=== PATIENT | female | born 1950 | race Caucasian/White ===

== ENCOUNTER 2016-11-26 10:53 | Emergency (ER) | payer OTHER ==
[~2016-11-26] VITALS: Ht 160 cm; Wt 61.2 kg
[~2016-11-26 10:53] MED LIST: AZIT250T74
[2016-11-26 11:01] VITALS: BP 135/88; PULSE 86; RESP 18; TEMP 98.2; O2SAT 95
[2016-11-26] MEDS ORDERED: AMBI10TA PO (11:15)
[2016-11-26] MEDS ORDERED: HYDR-3516 PO (11:15)
[2016-11-26] MEDS ORDERED: KETOROLAC TROMETHAMINE 60 MG/2 ML (IM) VIAL IM ONE (11:45)
--- NOTE | 2016-11-26 11:45 | PD ---
HPI Chief Complaint: Musculoskeletal Complaint Time Seen by Provider: 11:39 Travel History International Travel<30 days: No Contact w/Intl Traveler<30days: No Traveled to known affect area: No History of Present Illness HPI 66-year-old female presents to the emergency room for evaluation of left hip pain for the past 2 months. Patient states pain has been intermittent since onset. She denies trauma or injury. She went to her orthopedic physician who took an x-ray and stated that her bones were healthy and that was likely bursitis. She then had a steroid injection under CT one week ago today. Patient states that since the injection her pain has worsened. It is now radiating down her left lower extremity where it didn't do that before. Patient denies the lower extremity paresthesias. Denies weakness. She called her primary care physician who wrote #60 hydrocodone and ordered an outpatient MRI. Her MRI is scheduled for next week. She took one hydrocodone and states it made her feel loopy so she would not like to take them anymore. Pain is keeping her up at night and affecting her ability to work out. She denies increasing back pain. PFSH Past Medical History Medical History: Denies Significant Hx Tetanus Vaccination: < 5 Years Influenza Vaccination: Yes ?: Not Past Surgical History Section: Yes Social History Alcohol Use: Yes Tobacco Use: No Substance Use: No Allergies-Medications (Allergen,Severity, Reaction): Coded Allergies: Penicillin (Verified Allergy, Mild, 11/26/16) Bactrim (Verified Allergy, Unknown, 11/26/16) Reported Meds & Prescriptions Reported Meds & Active Scripts Active Ibuprofen 600 Mg Tab 600 Mg PO Q8HR PRN Reported Hydrocodone-Acetaminophen 5-325 mg Tab 1 Tab PO Q6H PRN Ambien (Zolpidem Tartrate) 10 Mg Tab 10 Mg PO HS PRN Review of Systems Except as stated in HPI: all other systems reviewed are Neg Physical Exam Narrative GENERAL: Well-nourished, well-developed female in no acute distress. Afebrile. Ambulatory. SKIN: Focused skin assessment warm/dry. HEAD: Normocephalic. EYES: No scleral icterus. No injection or drainage. NECK: Supple, trachea midline. No JVD or lymphadenopathy. CARDIOVASCULAR: Regular rate and rhythm without murmurs, gallops, or rubs. RESPIRATORY: Breath sounds equal bilaterally. No accessory muscle use. MUSCULOSKELETAL: No cyanosis, or edema. 2+ dorsalis pedis pulse in the left. Mild tenderness to palpation of the left buttocks. Mild pain with left hip flexion. No rotation or shortening. Strength 5/5 and equal in lower extremities. BACK: Nontender without obvious deformity. No CVA tenderness. Data Data Last Documented VS Vital Signs Date Time Temp Pulse Resp B/P Pulse Ox O2 Delivery O2 Flow Rate FiO2 11/26/16 11:01 98.2 86 18 135/88 95 Orders Ketorolac Inj (Toradol Inj) (11/26/16 11:45) [facility] [place] Medical Decision Making Medical Screen Exam Complete: Yes Emergency Medical Condition: Yes Medical Record Reviewed: Yes Differential Diagnosis Bursitis versus sciatica versus tendinitis versus tendinopathy Narrative Course 66-year-old female presents to the emergency room for evaluation of left hip pain for the past few months that worsened one week ago after she had an injection of steroids to the area. Patient denies any trauma or injury. Left lower extremity is neurovascularly intact with 2+ dorsalis pedis pulse and 5/5 strength equal. She has had outpatient x-ray, CT, and pain management done by orthopedist, interventional radiologist, and her primary care physician but states the pain seems to be worsening. She has a scheduled MRI in 6 days. Patient presents for pain control. She was prescribed Lortab but states she does not like the way they make her feel and is requesting something else. She was given Toradol in the emergency room. She was offered steroid dose pack but declined for fear of side effects. Patient was told to follow up with her primary care physician for outpatient MRI to find a cause of pain. She was told to return for worsening symptoms. She understands and agrees to plan. Diagnosis Primary Impression: Hip bursitis, left Qualified Code: M70.72 - Bursitis of other bursa of left hip Referrals: Primary Care Physician Patient Instructions: General Instructions, Hip Bursitis (ED) Additional Instructions: Rest and drink plenty of fluids. Take ibuprofen with food as directed, as needed for pain. Apply ice to the affected area for 20 minutes at a time, as needed for pain and swelling. Follow-up with a primary care physician. Return to the emergency room for worsening symptoms. Scripts Ibuprofen 600 Mg Bul392 Mg PO Q8HR PRN (PAIN) #21 TAB Ref 0 Prov:Lizeth,Shravanti R. MD 11/26/16 Disposition: 01 DISCHARGE HOME Condition: Stable Felipa Michel November 26, 2016 11:45
[2016-11-26] MEDS ORDERED: IBUP-232 PO (11:46)
[2016-12-02] MEDS ORDERED: HYDR-3516 PO (09:02)
[2016-12-02] MEDS ORDERED: ASCO500C PO (09:16)
[2016-12-02] MEDS ORDERED: FISHCAP4 PO (09:16)
[2016-12-02] MEDS ORDERED: PANT20 PO (09:16)
[2016-12-02] MEDS ORDERED: LACTCAP8 PO (09:16)
[2016-12-02] MEDS ORDERED: MELO-1 PO (09:16)
[2016-12-30] MEDS ORDERED: OXYC1TAB63 PO (15:28)
== END 2016-11-26 11:54 | disposition home or self-care (01) ==
LOC: PHEFT 10:53
DX: M70.72 Other bursitis of hip, left hip (principal)
CPT/HCPCS: 96372; 99283; J1885

== ENCOUNTER 2016-12-04 09:07 | Inpatient (IN) | payer OTHER ==
[~2016-12-04] VITALS: Ht 160 cm; Wt 60.3 kg
[~2016-12-04 09:07] MED LIST changes: +AMBI10TA PO; -AZIT250T74; +FISHCAP4 PO; +IBUP-232 PO; +LACTCAP8 PO; +PANT20 PO
[2016-12-08] MEDS ORDERED: VITA250T3 PO (08:57)
[2016-12-08] MEDS ORDERED: PERC5TAB12 PO (08:57)
[2016-12-08] MEDS ORDERED: MOBI15TA PO (08:57)
[2016-12-08] MEDS ORDERED: OS-CTAB3 PO (08:57)
[2016-12-17] MEDS ORDERED: INSULIN HUMAN REGULAR 1,000 UNITS/10 ML VIAL SQ PRN (07:00)
[2016-12-17] MEDS ORDERED: METOPROLOL TARTRATE 25 MG TAB PO PRN (07:00)
[2016-12-17] MEDS ORDERED: CHLORHEXIDINE GLUCONATE 2 % 1 PACK (2 CLOTHS) TOPICAL PRN (07:00)
[2016-12-17] MEDS ORDERED: LACTATED RINGER'S 1000 ML INJ 1,000 ML IV SCH ×2 (07:00→14:00)
[2016-12-17] MEDS ORDERED: POVIDONE IODINE 5% (ANTISEPSIS KIT) 4 APPLICATIONS EACH NARE PRN (07:00)
[2016-12-17] MEDS ORDERED: CLINDAMYCIN 600 MG/NS 100 ML IV PRN ×2 (07:00)
[2016-12-17] MEDS ORDERED: SODIUM CHLORID 0.9% 500 ML IV PRN (07:00)
[2016-12-17] MEDS ORDERED: LACTATED RINGER'S 1000 ML IV PRN (07:00)
[2016-12-17 07:13] VITALS: BP 148/80; PULSE 77; RESP 18; TEMP 98.2; O2SAT 100
[2016-12-17] MEDS ORDERED: SODIUM CHLORIDE 0.9% INJ 100 ML ONE (07:22)
[2016-12-17] MEDS ORDERED: THROMBIN (TOPICAL) 5,000 UNIT VIAL ONE (07:59)
[2016-12-17] MEDS ORDERED: GENTAMICIN SULFATE 80 MG/2 ML VIAL ONE (08:00)
[2016-12-17] MEDS ORDERED: LIDOCAINE 2%/EPINEPHrine 1:100,000 30ML MDV ONE (08:00)
[2016-12-17] MEDS ORDERED: GELFOAM SIZE 100 ONE (08:00)
[2016-12-17] MEDS ORDERED: APREPITANT 40 MG CAP ONE (08:10)
[2016-12-17] MEDS ORDERED: FAMOTIDINE 20 MG/2 ML VIAL ONE (08:10)
[2016-12-17] MEDS ORDERED: BUPIVACAINE LIPOSOME PF 1.3% 20 ML VIAL INFIL ONE (11:34)
[2016-12-17] MEDS ORDERED: ONDANSETRON HCL 4 MG/2 ML VIAL IV PUSH ONE (12:00)
[2016-12-17] MEDS ORDERED: PROPOFOL 200 MG/20 ML AMP IV ONE (12:00)
[2016-12-17] MEDS ORDERED: PHENYLEPH/NS 1000 MCG/10 ML SYR IV ONE (12:00)
[2016-12-17] MEDS ORDERED: NEOSTIGMINE 3 MG/3 ML SYR IV ONE (12:00)
[2016-12-17] MEDS ORDERED: LACTATED RINGER'S 1000 ML INJ 1,000 ML IV ONE (12:00)
[2016-12-17] MEDS ORDERED: ePHEDrine/NS 25 MG/5 ML SYR IV ONE (12:00)
[2016-12-17] MEDS ORDERED: ONDANSETRON HCL 4 MG/2 ML VIAL ONE (12:06)
[2016-12-17] MEDS ORDERED: fentaNYL CITRATE 250 MCG/5 ML AMP ONE (12:11)
[2016-12-17] MEDS ORDERED: MIDAZOLAM HCL 2 MG/2 ML VIAL ONE (12:11)
[2016-12-17] MEDS ORDERED: *morphine SULFATE 8 MG/ML PERIprocedure ONLY ONE (12:21)
[2016-12-17] MEDS ORDERED: DILA2TAB2 PO (12:51)
[2016-12-17] MEDS ORDERED: PERC10TA27 PO (12:51)
[2016-12-17] MEDS ORDERED: DO NOT ADM ANY ANTICOAGULANT DRUGS PRN (13:00)
[2016-12-17] MEDS ORDERED: oxyCODONE/ACETAMINOPHEN 5 MG/325 MG TAB PO PRN (13:15)
[2016-12-17] MEDS ORDERED: NALOXONE HCL 0.4 MG/ML AMP IV PRN (13:15)
[2016-12-17] MEDS ORDERED: HYDROmorphone HCL PF 1 MG/ML VIAL IV PRN (13:15)
[2016-12-17] MEDS ORDERED: SODIUM CHLORIDE 0.9% FLUSH 10 ML FLUSH IV FLUSH PRN (13:15)
[2016-12-17] MEDS ORDERED: oxyCODONE/ACETAMINOPHEN 10 MG/325 MG TAB PO PRN (13:15)
--- NOTE | 2016-12-17 13:15 | PD.OP ---
Operative Report Date of Surgery: Dec 17, 2016 Preoperative Diagnosis: (1) Synovial cyst of lumbar facet joint (2) Lumbar radiculopathy Postoperative Diagnosis: (1) Synovial cyst of lumbar facet joint (2) Lumbar radiculopathy Procedure: Left L5-S1 decompressive semi-laminectomy, medial facetectomy Resection left L5-S1 synovial cyst versus ganglion cyst Anesthesia: Gen. Surgeon: John Lutz Industrial Relations Representative(s): Malgorzata Khan Operation and Findings: Findings: Synovial versus ganglion cyst at the dorsal lateral left L5-S1 level thecal sac with adjacent facet hypertrophy and arthropathy and hypertrophied ligamentum flavum, all impinging on the exiting left S1 nerve root. Procedure in detail: The patient was brought into the operating room and general endotracheal anesthesia induced without difficulty. BELTRAN hose and sequential compression devices were placed. Lines were established by anesthesia. The patient was positioned on the concentric Juan David table with the side bolsters and all extremities appropriately padded. Appropriate time-out procedure was performed with all personnel present and in agreement. 1% Xylocaine with epinephrine was used for local infiltration over the incision site which was made just to the left of midline at the L5-S1 level. The incision was carried sharply down to the lumbodorsal fascia which was incised adjacent to the spinous processes. Killian elevator was used for subperiosteal elevation of paraspinous musculature and fascia away from the lamina and spinous process. The deep self-retaining retractor was placed. The left L5-S1 level was verified with intraoperative C-arm. Microscope was moved into place and used for the remainder of the procedure including the closure. At the left L5-S1 level, the TPS drill with a 5 mm bone bur was used to remove the inferior two thirds of the more cephalad lamina and the superior aspect of the more caudal lamina along with a moderate amount of the bilateral medial facet sufficient to gain access to the lateral recess and exiting left S1 nerve root without significant thecal sac retraction, taking care not to disrupt the integrity of the facet or pars intra-articularis. The hypertrophied ligamentum flavum was elevated away from the thecal sac with the thin ligament dissector and resected with the 15 blade knife and the Kerrison rongeur out to the level of the deep lateral recess There was significant hypertrophy of the facet. The patient's anatomy was such that there was a rather small interlaminar space at the left L5-S1 level. There was also significant overlap of the facet over the left S1 nerve root. There was also at least moderate ligament hypertrophy. There appeared to be a synovial cyst incorporated into the medial facet and adjacent ligamentum flavum at the left L5-S1 level. The thecal sac above and below the area of the apparent synovial cyst was visualized and decompressed. Then working both cranial and caudal to the area of the apparent synovial cyst, the cyst capsule was carefully lifted away from the adjacent lateral thecal sac. The left S1 nerve root was delineated as it coursed medial to the left S1 pedicle and was followed up into the thecal sac. The abnormal cystic area was well dorsal to the exiting left S1 nerve root. Upon further dissection, there appeared to be intrusion of the abnormal lesion into the thecal sac and intradural space itself. There was calcified and caseous-appearing material within the cyst which was lifted away from the thecal sac. However there were also possibly some nerve fibers within the sac, suggestive of a ganglion cyst. The cyst wall and calcific and caseous contents along with what appeared to be possibly some nerve fibers were resected down to the level of the lateral thecal sac wall with the microscissors and sent for permanent section pathology. There was no significant bleeding encountered. No spinal fluid leakage was encountered. The exiting left S1 nerve root was followed to the level of the medial pedicle to ensure that it was well decompressed. The nerve roots appeared well decompressed at the end of the procedure. No spinal fluid leakage was encountered. The disc and annulus at each level was visualized to make sure that there was no significant disc displacement or herniation. Bleeding was carefully controlled with the bipolar forceps. The closure was performed with 0 Vicryl interrupted for the deep and superficial fascia, with 3-0 Vicryl interrupted subcutaneous closure, and 4-0 Vicryl running subcuticular closure. A dressing of sterile Mastisol, Steri- Strips, and Primapore was placed. The patient was taken to recovery room in stable condition. All counts were correct at the end of the case. Estimated blood loss was 100 cc. No specimen was sent to pathology John Lutz MD Dec 17, 2016 13:15
[2016-12-17] MEDS ORDERED: SODIUM CHLORIDE 0.9% FLUSH 10 ML FLUSH IV FLUSH SCH (14:00)
[2016-12-17 14:38] VITALS: BP 101/73; PULSE 93; RESP 16; TEMP 97.2; O2SAT 98
--- NOTE | 2016-12-17 15:15 | RADRPT ---
EXAM DATE/TIME: 12/17/2016 09:26 [facility] COMPARISON: No previous studies available for comparison. INDICATIONS : Synovial cyst removal., laminectomy. MEDICAL HISTORY : None. SURGICAL HISTORY : None. ENCOUNTER: Initial ACUITY: 1 day PAIN SCORE: LOCATION: Lumbar spine FINDINGS: A single magnified spot view is a lateral projection of the lower lumbar spine at the lumbosacral addi ction. Dorsal skin retractors and a metallic probe within the dorsal soft tissues noted. The probe pr ojects towards L5-S1 disc space level. CONCLUSION: Limited image as detailed above. Jeet Fall Jr., MD on December 17, 2016 at 15:12 Board Certified Radiologist. This report was verified electronically.
[2016-12-30] MEDS ORDERED: OXYC1TAB63 PO (15:28)
== END 2016-12-17 14:47 | disposition home or self-care (01) | DRG 520 ==
LOC: HSDI 12-17 06:31 → EDSTATUS 12-17 08:30
PROVIDERS: ADMIT Neurological Surgery; ATTEND Neurological Surgery
PROC: 01NB0ZZ Release Lumbar Nerve, Open Approach (ICD-10-PCS; 2016-12-17)
PROC: 00BY0ZZ Excision of Lumbar Spinal Cord, Open Approach (ICD-10-PCS; principal; 2016-12-17 08:34)
DX: M71.38 Other bursal cyst, other site (principal); K21.9 Gastro-esophageal reflux disease without esophagitis; M54.16 Radiculopathy, lumbar region; M67.48 Ganglion, other site
CPT/HCPCS: 72020; 76000; 88304; C9290; J1580; J2250; J2270; J2370; J2405; J2710; J3010; J7120; J8501

== ENCOUNTER → 2016-12-08 | Outpatient (CLI) | payer OTHER ==
[~2016-12-08] MED LIST changes: +ASCO500C PO; +DILA2TAB2 PO; +HYDR-3516 PO; +MELO-1 PO; +MOBI15TA PO; +OS-CTAB3 PO; +OXYC1TAB63 PO; +PERC10TA27 PO; +PERC5TAB12 PO; +VITA250T3 PO
[2016-12-08 09:16] LABS: HEMATOCRIT 40.1 % (35.0-46.0); MEAN CELL VOLUME 88.2 FL (80.0-100.0); MEAN CORPUSCULAR HEMOGLOBIN 28.6 PG (27.0-34.0); MEAN CORPUSCULAR HGB CONC 32.4 % (32.0-36.0); PLATELET COUNT 196 TH/MM3 (150-450); RED BLOOD COUNT 4.55 MIL/MM3 (4.00-5.30); RED CELL DISTRIBUTION WIDTH 14.1 % (11.6-17.2); REVIEW FLAG FINAL
[2016-12-08 09:26] LABS: PROTHROMBIN TIME - PATIENT 10.8 SEC (9.8-11.6)
[2016-12-08 09:42] LABS: BICARBONATE 28.1 MEQ/L (21.0-32.0); POTASSIUM 3.9 MEQ/L (3.5-5.1)
--- NOTE | 2016-12-08 09:44 | RADRPT ---
EXAM DATE/TIME: 12/08/2016 09:36 [facility] COMPARISON: No previous studies available for comparison. INDICATIONS : Evaluate for pneumonia, pneumothorax, or communicable disease. Pre-op for back surgery. MEDICAL HISTORY : None. SURGICAL HISTORY : None. ENCOUNTER: Initial ACUITY: 1 day PAIN SCORE: 0/10 LOCATION: Bilateral chest FINDINGS: PA and lateral views of the chest demonstrate mild linear infiltrates in both lung bases suggestive o f atelectasis versus scarring. Otherwise, the lungs are clear and well aerated. No definite acute pul monary infiltrates.. The cardiomediastinal contours are unremarkable. Osseous structures are intact with bony degenerative changes.. CONCLUSION: Mild bibasilar atelectasis versus scarring. Viraj Sanchez MD on December 08, 2016 at 9:41 Board Certified Radiologist. This report was verified electronically.
--- NOTE | 2016-12-08 11:59 | EKG ---
Date Performed: 12/08/2016 Time Performed: 08:19:39 PTAGE: 66 years EKG: Sinus rhythm NORMAL ECG NO PREVIOUS TRACING DOCTOR: Paxton Argueta Interpretating Date/Time 12/08/2016 11:58:55
== END ==
LOC: CPRE 08:05
PROVIDERS: ATTEND Neurological Surgery
DX: Z01.810 Encounter for preprocedural cardiovascular examination (principal); Z01.811 Encounter for preprocedural respiratory examination; Z01.812 Encounter for preprocedural laboratory examination; Z01.818 Encounter for other preprocedural examination; M54.16 Radiculopathy, lumbar region; M48.06 Spinal stenosis, lumbar region
CPT/HCPCS: 36415; 71020; 80048; 85027; 85610; 85730; 93005

== ENCOUNTER → 2017-06-21 | Day surgery (SDC) | payer OTHER ==
[~2017-06-21] MED LIST changes: -ASCO500C PO; -DILA2TAB2 PO; +DILA2TAB4 PO; -FISHCAP4 PO; -HYDR-3516 PO; -IBUP-232 PO; -MELO-1 PO; -MOBI15TA PO; -OS-CTAB3 PO; -PERC10TA27 PO; -PERC5TAB12 PO; +PROPOFOL 500 MG/50 ML BTL IV ONE
--- NOTE | 2017-06-21 11:07 | GIPROC ---
[facility] [address] [facility], [id number] EGD PROCEDURE REPORT EXAM DATE: 06/21/2017 PATIENT NAME: Radha Lemus MR #: [id number] BIRTHDATE: 1950 ATTENDING: Delonte Maynard MD ORDER #: [id number] SLATE WORKER: Curtis Carrillo RN STATUS: outpatient INDICATIONS: The patient is a 66 yr old female here for an EGD due to history of esophageal reflux PROCEDURE PERFORMED: EGD w/ biopsy MEDICATIONS: None and Per Anesthesia. TOPICAL ANESTHETIC: CONSENT: The patient understands the risks and benefits of the procedure and understands that these risks include, but are not limited to: sedation, allergic reaction, infection, perforation and/or bleeding. Alternative means of evaluation and treatment include, among others: physical exam, x-rays, and/or surgical intervention. The patient elects to proceed with this endoscopic procedure. medical equipment was checked for proper function. Hand hygiene and appropriate measures for infection prevention was taken. After the risks, benefits and alternatives of the procedure were thoroughly explained, Informed consent was verified, confirmed and timeout was successfully executed by the treatment team. The patient was anesthetized with topical anesthesia and the EC-3890Li ([id number]) endoscope was introduced through the mouth and advanced to the second portion of the duodenum. Retroflexed views revealed no abnormalities The gastroscope was then slowly withdrawn and removed. ESOPHAGUS: There was LA Class A esophagitis noted. A biopsy was performed using cold forceps. Sample sent for histology. STOMACH: There was erythematous moderate gastritis in the gastric antrum. A biopsy was performed using cold forceps. Sample sent for histology. DUODENUM: The duodenal mucosa appeared normal in the bulb and second portion of the duodenum. ADVERSE EVENTS: There were no complications. IMPRESSIONS: 1. There was LA Class A esophagitis noted; biopsy was performed 2. There was erythematous gastritis in the gastric antrum; biopsy was performed 3. Normal duodenal mucosa in the bulb and second portion of the duodenum 4. Retroflexed views revealed no abnormalities RECOMMENDATIONS: 1. Await biopsy results. Biopsy results will not be ready for 7-10 days. If you don't hear from us in two weeks, call our office for biopsy results. 2. Anti-reflux regimen 3. Continue PPI 4. Avoid NSAIDS PATIENT CONDITION: stable DISPOSITION: Home REPEAT EXAM: Return 3 years EGD pending biopsy results Delonte Maynard MD eSigned: Delonte Maynard MD 06/21/2017 11:06 AM cc: Paulino carey M.D. PATIENT NAME: Radha Lemus MR#: [id number]
--- NOTE | 2017-06-21 11:25 | GIPROC ---
[facility] [address] [facility], [address] COLONOSCOPY PROCEDURE REPORT EXAM DATE: 06/21/2017 PATIENT NAME: Radha Lemus MR #: [id number] BIRTHDATE: 1950 ENDOSCOPIST: Delonte Maynard MD ORDER #: [id number] GOAT FARMER: Curtis Carrillo RN STATUS: outpatient INDICATIONS: The patient is a 66 yr old female here for a colonoscopy due to high risk patient with personal history of colonic polyps, patient's family history of colon polyps, and change in bowel habits PROCEDURE PERFORMED: Colonoscopy with biopsy MEDICATIONS: None and Per Anesthesia. PREP QUALITY: The [place] Bowel Prep Score was Right colon 2, Mid colon 2, and Left colon 2. Total = 6. ESTIMATED BLOOD LOSS: None CONSENT: The patient understands the risks and benefits of the procedure and understands that these risks include, but are not limited to: sedation, allergic reaction, infection, perforation and/or bleeding. Alternative means of evaluation and treatment include, among others: physical exam, x-rays, and/or surgical intervention. The patient elects to proceed with this endoscopic procedure. medical equipment was checked for proper function. Hand hygiene and appropriate measures for infection prevention was taken. After the risks, benefits and alternatives of the procedure were thoroughly explained, Informed consent was verified, confirmed and timeout was successfully executed by the treatment team. A digital exam revealed external hemorrhoids The EC-3890Li ([id number]) endoscope was introduced through the anus and advanced to the terminal ileum which was intubated for a short distance. The instrument was then slowly withdrawn as the colon was fully examined. COLON FINDINGS: The colonic mucosa appeared normal throughout the entire examined colon. Multiple random biopsies of the area were performed using cold forceps. Retroflexed views revealed internal hemorrhoids and Retroflexed views revealed medium internal hemorrhoids The scope was then completely withdrawn from the patient and the procedure terminated. PROCEDURE WITHDRAWAL TIME:6minutes ADVERSE EVENTS: There were no complications. IMPRESSIONS: 1. The colonic mucosa appeared normal throughout the entire examined colon; multiple random biopsies of the area were performed using cold forceps 2. Retroflexed views revealed internal hemorrhoids 3. Retroflexed views revealed medium internal hemorrhoids 4. Revealed external hemorrhoids RECOMMENDATIONS: 1. Await biopsy results. Biopsy results will not be ready for 7-10 days. If you don't hear from us in two weeks, call our office for results. 2. Benefiber 2 tsp daily 3. Continue surveillance 4. Yearly hemoccult 5. High fiber diet RECALL: Return 3 years Colonoscopy, pending biopsy results Delonte Maynard MD eSigned: Delonte Maynard MD 06/21/2017 11:25 AM cc: Paulino carey M.D. PATIENT NAME: Radha Lemus MR#: [id number]
== END | disposition home or self-care (01) ==
LOC: ESDC 08:50
PROVIDERS: ATTEND Internal Medicine Gastroenterology
DX: R19.4 Change in bowel habit (principal); Z86.010 Personal history of colon polyps; Z83.71 Family history of colonic polyps; K64.4 Residual hemorrhoidal skin tags; K64.8 Other hemorrhoids; K21.9 Gastro-esophageal reflux disease without esophagitis; K20.9 Esophagitis, unspecified; K29.70 Gastritis, unspecified, without bleeding
CPT/HCPCS: 00740; 00810; 43239; 45380; 88305; 88312; J3010

== ENCOUNTER → 2017-08-18 | Outpatient (CLI) | payer OTHER ==
[~2017-08-18] MED LIST changes: -PROPOFOL 500 MG/50 ML BTL IV ONE
[2017-08-18 13:22] LABS: HEMATOCRIT 42.8 % (35.0-46.0); HEMOGLOBIN 14.1 GM/DL (11.6-15.3); MEAN CELL VOLUME 86.3 FL (80.0-100.0); MEAN CORPUSCULAR HEMOGLOBIN 28.5 PG (27.0-34.0); MEAN PLATELET VOLUME 10.1 FL (7.0-11.0); PLATELET COUNT 235 TH/MM3 (150-450); RED BLOOD COUNT 4.96 MIL/MM3 (4.00-5.30); RED CELL DISTRIBUTION WIDTH 14.7 % (11.6-17.2); WHITE BLOOD COUNT 5.2 TH/MM3 (4.0-11.0)
[2017-08-18 13:33] LABS: ALBUMIN 3.7 GM/DL (3.4-5.0); ALT (GPT) 19 U/L (10-53); AST (GOT) 24 U/L (15-37); BICARBONATE 28.4 MEQ/L (21.0-32.0); BLOOD UREA NITROGEN 19 MG/DL (7-18); CALCIUM 8.6 MG/DL (8.5-10.1); CHLORIDE 106 MEQ/L (98-107); CHOLESTEROL 236 MG/DL (120-200); CREATININE 0.68 MG/DL (0.50-1.00); GLOMERULAR FILTRATION RATE 87 ML/MIN (>89); GLUCOSE,FASTING 92 MG/DL (74-99); SODIUM (NA) 140 MEQ/L (136-145)
[2017-08-18 13:42] LABS: ALKALINE PHOSPHATASE 50 U/L (45-117); CHOLESTEROL/ HDL RATIO 1.97 RATIO; HDL CHOLESTEROL 119.4 MG/DL (40.0-60.0); LDL CHOLESTEROL 108 MG/DL (0-99); LDL CHOLESTEROL DIRECT 105 MG/DL (0-99); TOTAL BILIRUBIN ADULT 0.8 MG/DL (0.2-1.0); TOTAL PROTEIN 7.3 GM/DL (6.4-8.2); TRIGLYCERIDES 44 MG/DL (42-150)
[2017-08-18 16:47] LABS: HEMOGLOBIN A1C 5.8 % (4.3-6.0)
== END ==
LOC: PLAB 09:52
PROVIDERS: ATTEND Family Medicine
DX: R53.83 Other fatigue (principal); E78.2 Mixed hyperlipidemia; I10 Essential (primary) hypertension; R73.01 Impaired fasting glucose
CPT/HCPCS: 36415; 80053; 80061; 83036; 83721; 84443; 85027

== ENCOUNTER → 2017-08-25 | Outpatient (CLI) | payer OTHER | LOC: PLAB 11:40 | PROVIDERS: ATTEND Internal Medicine Gastroenterology | DX: A04.8 Other specified bacterial intestinal infections (principal) | CPT/HCPCS: 87338 ==